=== PATIENT | female | born 1945 | race Caucasian/White ===

== ENCOUNTER → 2017-09-23 | Outpatient (CLI) | payer MEDICARE, OTHER ==
[~2017-09-23] MED LIST: AC325T PO; BUDE6HFA IH; CHOL2000 PO; CNDS16T PO; FEXO180T PO; GABA600T2 PO; LUBI24CA PO; METF500T8 PO; PRAM0.252 PO; SITA100T PO; TIOT18CA IH; TRAM50TA2 PO; TRS20T PO; VENL150C PO
--- NOTE | 2017-09-23 12:40 | Diagnostic Imaging Report ---
INDICATION: Left rib pain. TIME OF EXAM: 12:45 p.m. FINDINGS: Multiple views of left-sided ribs were obtained. No displaced rib fracture is detected. There appears to be some atelectasis or infiltrate in the left lung base and perhaps minimal pleural fluid. IMPRESSION: 1. No displaced rib fracture detected. 2. Left basilar infiltrate or atelectasis and trace pleural effusion. Dictated by: Dictated on workstation # [id number]
== END ==
LOC: RAD 12:11
PROVIDERS: ATTEND Family Medicine
DX: R07.81 Pleurodynia (principal)
CPT/HCPCS: 71100

== ENCOUNTER → 2017-11-11 | Outpatient (CLI) | payer MEDICARE, OTHER ==
--- NOTE | 2017-11-11 14:31 | Diagnostic Imaging Report ---
INDICATION: Left shoulder pain. FINDINGS: Two views of the left shoulder show no fracture or dislocation. IMPRESSION: Negative left shoulder. Dictated by: Dictated on workstation # [id number]
--- NOTE | 2017-11-11 14:32 | Diagnostic Imaging Report ---
INDICATION: Chest pain. FINDINGS: The lungs are clear. The heart size is at the upper limits. No gross overdistention of the vascularity. There is mild air trapping or aggressive inspiration. No acute chest wall pathology. No effusion or pneumothorax. IMPRESSION: Clear mildly hyperexpanded lungs which may reflect an element of air trapping. No acute chest wall pathology. No infiltrate. Dictated by: Dictated on workstation # [id number]
== END ==
LOC: RAD 13:43
PROVIDERS: ATTEND Nurse Practitioner Family
DX: J98.4 Other disorders of lung (principal); M25.512 Pain in left shoulder
CPT/HCPCS: 71046; 73030

== ENCOUNTER → 2017-11-18 | Outpatient (CLI) | payer MEDICARE, OTHER ==
[~2017-11-18] MED LIST changes: +CATHETER FLUSH 10 ML SYR IV PRN; +IOHEXOL 350 MG/ML 100 ML (OMNIPAQUE 350) VIAL IV ONE; +NS 250 ML (IVPB) BAG IV ONE; +RECEIVED CONTRAST (Hold Metformin) IV SCH
[2017-11-18 09:27] LABS: BUN/CREATININE RATIO 17; CREATININE SERUM 0.77 MG/DL (0.60-1.30); GFR ESTIMATED > 60
--- NOTE | 2017-11-18 13:46 | Diagnostic Imaging Report ---
PROCEDURE: CT chest with contrast only. TECHNIQUE: Multiple contiguous axial images were obtained through the chest after administration of intravenous contrast. INDICATION: Chest pain. COMPARISON: There are no prior CT chest studies available for comparison. FINDINGS: The heart is enlarged. There is no clear evidence for coronary artery calcifications, however. The aorta is not abnormally dilated, and there is no sign of a dissection. There is no defect within the pulmonary arteries to indicate a pulmonary embolus. There are slightly displaced fractures of the anterior aspects of the right sixth, seventh, eighth, and ninth ribs. There is also some deformity of the right 10th rib anteriorly. This could be long-standing in nature. There are also slightly displaced fractures of the anterior aspects of the left sixth, seventh, eighth, and ninth ribs. There is no sign of pneumothorax. There is an alveolar/interstitial infiltrate in the left infrahilar region and the left lung base. These findings may be secondary to pneumonia/atelectasis. The possibility that these are related to pulmonary contusions should also be considered. There are also much smaller patchy areas of increased density in the periphery of each lung. These too may relate to mild pneumonia/atelectasis. There is a 4.3 mm noncalcified nodule in the left lower lobe (image 36/62). This is most likely a benign process as it does not seem to have changed significantly since the prior CT abdomen/pelvis exam of 11/17/2010. There is no mediastinal or hilar adenopathy. The thyroid gland is generally unremarkable. As noted on the prior exam, there is a large hiatal hernia. The hernia measures approximately 4.2 x 5.9 cm in size. In the interval since the prior exam, it appears that the patient has undergone a surgical procedure regarding the hernia. Correlation with the patient's history would be recommended. The sections through the upper abdomen again show that both the liver and spleen are prominent but similar in appearance to the prior study. However, in the interval since the prior exam, a 2.3 x 3.4 cm well-defined area of diminished density has developed along the posterior aspect of the left kidney. Most likely, this is a cyst. The bone windows show no sign of a fracture or of a destructive lesion. There is no obvious breast mass. IMPRESSION: 1. There are multiple essentially nondisplaced rib fractures bilaterally. There is no sign of pneumothorax. 2. The abnormal parenchymal density in the left infrahilar region and the left lower lobe may be secondary to pneumonia/atelectasis. The possibility that these findings are related to a pulmonary contusion should also be considered. 3. There is no acute cardiopulmonary abnormality noted otherwise. In particular, there is no sign of a pulmonary embolus or of a dissection. 4. The small nodule in the left lung base seen previously is again evident and no different. There is a large hiatal hernia, and there has been an interval surgical procedure involving the hernia. 5. A 2.2 x 3.4 cm cyst has developed along the posterior aspect of the left kidney. Dictated by: Dictated on workstation # [id number]
== END ==
LOC: RAD 08:48
PROVIDERS: ATTEND Family Medicine
DX: S22.43XA Multiple fractures of ribs, bilateral, initial encounter for closed fracture (principal); R91.8 Other nonspecific abnormal finding of lung field; R91.1 Solitary pulmonary nodule; K44.9 Diaphragmatic hernia without obstruction or gangrene; N28.1 Cyst of kidney, acquired; Z98.890 Other specified postprocedural states
CPT/HCPCS: 36415; 71260; 82565; 84520

== ENCOUNTER → 2018-04-06 | Outpatient (CLI) | payer MEDICARE, OTHER ==
[~2018-04-06] MED LIST changes: -CATHETER FLUSH 10 ML SYR IV PRN; -IOHEXOL 350 MG/ML 100 ML (OMNIPAQUE 350) VIAL IV ONE; -NS 250 ML (IVPB) BAG IV ONE; -RECEIVED CONTRAST (Hold Metformin) IV SCH
--- NOTE | 2018-04-06 12:12 | Diagnostic Imaging Report ---
INDICATION: Chest tightness, dyspnea. Sore to the touch in the sternal region for several days. TECHNIQUE: Two-view chest at 11:22 a.m. CORRELATION STUDY: 11/11/2017. FINDINGS: Heart size remains borderline. Vasculature is within normal limits. Lungs remain generally clear, but slightly hyperinflated. No appreciable infiltrate. Density in the retrocardiac region consistent with a likely hiatal hernia. IMPRESSION: 1. Borderline heart size without failure. Slightly hyperinflated lung lugo which are clear. Dictated by: Dictated on workstation # [id number]
== END ==
LOC: RAD 10:50
PROVIDERS: ATTEND Family Medicine
DX: R07.89 Other chest pain (principal); R06.00 Dyspnea, unspecified
CPT/HCPCS: 71046

== ENCOUNTER → 2018-06-08 | Outpatient (CLI) | payer MEDICARE, OTHER | LOC: WOUNDCARE 12:48 | PROVIDERS: ATTEND Surgery | DX: E11.622 Type 2 diabetes mellitus with other skin ulcer (principal); I70.242 Atherosclerosis of native arteries of left leg with ulceration of calf; I87.332 Chronic venous hypertension (idiopathic) with ulcer and inflammation of left lower extremity; L97.221 Non-pressure chronic ulcer of left calf limited to breakdown of skin; I89.0 Lymphedema, not elsewhere classified; E66.01 Morbid (severe) obesity due to excess calories; Z68.43 Body mass index [BMI] 50.0-59.9, adult | CPT/HCPCS: 99213 ==

== ENCOUNTER → 2018-06-15 | Outpatient (CLI) | payer MEDICARE, OTHER | LOC: WOUNDCARE 09:14 | PROVIDERS: ATTEND Surgery | DX: E11.622 Type 2 diabetes mellitus with other skin ulcer (principal); I70.242 Atherosclerosis of native arteries of left leg with ulceration of calf; I87.332 Chronic venous hypertension (idiopathic) with ulcer and inflammation of left lower extremity; L97.221 Non-pressure chronic ulcer of left calf limited to breakdown of skin; I89.0 Lymphedema, not elsewhere classified; E66.01 Morbid (severe) obesity due to excess calories; Z68.43 Body mass index [BMI] 50.0-59.9, adult | CPT/HCPCS: 99213 ==

== ENCOUNTER → 2018-06-15 | Outpatient (CLI) | payer MEDICARE, OTHER ==
--- NOTE | 2018-06-15 09:33 | Diagnostic Imaging Report ---
Clinical indication: Patient with left leg ulcers and swelling. Comparison: None. Procedure: Real-time left lower extremity venous Doppler duplex evaluation is performed from the inguinal region through the popliteal fossa. The calf venous structures are also evaluated. Findings: The deep venous system is well visualized and is easily compressible. There is no evidence of deep venous thrombosis, valvular incompetence, or significant collateral circulation. Impression: There is no ultrasound Doppler evidence of deep venous thrombosis in the left lower extremity. Dictated by: Dictated on workstation # [id number]
== END ==
LOC: RAD 08:40
PROVIDERS: ATTEND Nurse Practitioner Family
DX: L97.929 Non-pressure chronic ulcer of unspecified part of left lower leg with unspecified severity (principal); M79.605 Pain in left leg

== ENCOUNTER → 2018-06-22 | Outpatient (CLI) | payer MEDICARE, OTHER | LOC: WOUNDCARE 08:01 | PROVIDERS: ATTEND Surgery | DX: E11.621 Type 2 diabetes mellitus with foot ulcer (principal); L97.511 Non-pressure chronic ulcer of other part of right foot limited to breakdown of skin; E11.622 Type 2 diabetes mellitus with other skin ulcer; I87.332 Chronic venous hypertension (idiopathic) with ulcer and inflammation of left lower extremity; L97.221 Non-pressure chronic ulcer of left calf limited to breakdown of skin; I89.0 Lymphedema, not elsewhere classified; E66.01 Morbid (severe) obesity due to excess calories; Z68.43 Body mass index [BMI] 50.0-59.9, adult | CPT/HCPCS: 29581 ==

== ENCOUNTER → 2018-06-24 | Outpatient (CLI) | payer MEDICARE, OTHER | LOC: WOUNDCARE 08:22 | PROVIDERS: ATTEND Surgery | DX: I87.332 Chronic venous hypertension (idiopathic) with ulcer and inflammation of left lower extremity (principal); L97.221 Non-pressure chronic ulcer of left calf limited to breakdown of skin; I89.0 Lymphedema, not elsewhere classified; E11.621 Type 2 diabetes mellitus with foot ulcer; L97.511 Non-pressure chronic ulcer of other part of right foot limited to breakdown of skin | CPT/HCPCS: 99212 ==

== ENCOUNTER → 2018-06-29 | Outpatient (CLI) | payer MEDICARE, OTHER | LOC: WOUNDCARE 08:13 | PROVIDERS: ATTEND Surgery | DX: E11.622 Type 2 diabetes mellitus with other skin ulcer (principal); I87.333 Chronic venous hypertension (idiopathic) with ulcer and inflammation of bilateral lower extremity; L97.212 Non-pressure chronic ulcer of right calf with fat layer exposed; L97.221 Non-pressure chronic ulcer of left calf limited to breakdown of skin; I89.0 Lymphedema, not elsewhere classified; E66.01 Morbid (severe) obesity due to excess calories; Z68.43 Body mass index [BMI] 50.0-59.9, adult | CPT/HCPCS: 11042; 29581 ==

== ENCOUNTER → 2018-07-01 | Outpatient (CLI) | payer MEDICARE, OTHER | LOC: WOUNDCARE 09:02 | PROVIDERS: ATTEND Surgery | DX: E11.622 Type 2 diabetes mellitus with other skin ulcer (principal); I87.333 Chronic venous hypertension (idiopathic) with ulcer and inflammation of bilateral lower extremity; L97.212 Non-pressure chronic ulcer of right calf with fat layer exposed; L97.221 Non-pressure chronic ulcer of left calf limited to breakdown of skin; I89.0 Lymphedema, not elsewhere classified; E66.01 Morbid (severe) obesity due to excess calories; Z68.43 Body mass index [BMI] 50.0-59.9, adult | CPT/HCPCS: 29581 ==

== ENCOUNTER 2018-07-03 08:54 | Emergency (ER) | payer MEDICARE, OTHER ==
[~2018-07-03] VITALS: Ht 165.1 cm; Wt 90.7 kg
--- OUTSIDE RECORDS SUMMARY | 2018-07-03 08:58 | XMS REPORT | Clinical Summary ---
Author Author [facility] Organization [facility] Address Unknown Phone Unavailable Care Team Providers Care Mottler Operator Name Role Phone Nuha Thomas MD PCP Allergies Not on File Current Medications Not on file Active Problems Not on file Social History Tobacco Use Types Packs/Day Years Used Date Never Assessed Sex Assigned at Date Recorded Not on file Last Filed Vital Signs Not on file Plan of Treatment Health Maintenance Due Date Last Done Comments Td # 1945 Zoster Vaccine# (1 of 2) 1996 Fall Risk Assessment # 2011 Osteoporosis Screening 2011 Pneumococcal Immunization 2011 65+ (1 of 2 - PCV13) Influenza Vaccine (#1) 2018 Results Not on filefrom Last 3 Months
--- OUTSIDE RECORDS SUMMARY | 2018-07-03 08:58 | XMS REPORT | Clinical Summary ---
Author Author [facility] Organization [facility] Address Unknown Phone Unavailable Care Team Providers Care Client Engagement Manager Name Role Phone Jose De Jesus Tyler MD Unavailable Antionette Rodriges MD PCP Source Comments Some departments are not documenting in the electronic medical record. If you do not see the information that you expected, contact Release of Information in the Health Information Management department at [phone] for further assistance in locating additional records.[facility] Allergies Active Allergy Reactions Severity Noted Date Comments Codeine SHORTNESS OF BREATH, SEE Medium 05/10/2012 Abdominal pain COMMENTS Morphine SHORTNESS OF BREATH, SEE Medium 05/10/2012 Abdominal pain COMMENTS Current Medications Prescription Sig. Disp. Refills Start End Date Status Date gabapentin (NEURONTIN) Take 800 mg by mouth Active 800 mg tablet daily. 1. PRAMIPEXOLE DI-HCL Take 1.5 mg by mouth Active (PRAMIPEXOLE PO) daily. 1. fexofenadine(+) (HAO) Take 180 mg by mouth Active 180 mg tablet daily. cetirizine (ZYRTEC) 10 mg Take 10 mg by mouth Active tablet daily. fluticasone (FLONASE) 50 Apply 2 Sprays to each Active mcg/actuation nasal spray nostril as directed daily. sertraline (ZOLOFT) 100 Take 100 mg by mouth Active mg tablet daily. furosemide (LASIX) 40 mg Take 40 mg by mouth twice Active tablet weekly. potassium chloride SR Take 20 mEq by mouth Active (K-DUR) 20 mEq tablet daily. allopurinol (ZYLOPRIM) Take 300 mg by mouth Active 300 mg tablet daily. MULTIVITAMIN WITH Take 1 Tab by mouth twice Active MINERALS (MULTIVITAMIN & daily. MINERAL FORMULA PO) acetaminophen (TYLENOL) Take 500 mg by mouth Active 500 mg tablet every 6 hours as needed for Pain. celecoxib (CELEBREX) 200 Take 200 mg by mouth Active mg capsule twice daily. OMEPRAZOLE (PRILOSEC PO) Take 1 Tab by mouth twice Active daily. Active Problems Problem Noted Date Cerebral cavernoma 05/28/2012 Numbness and tingling in right hand 05/28/2012 Numbness and tingling of right leg 05/28/2012 Right foot drop 05/28/2012 Overview: Complete resolution at this time. Family History Medical History Relation Name Comments COPD Father Alzheimer's Mother Arthritis Other /gout-parents Cancer Other siblings Depression Other parents Emphysema Other /black lung-parents Mental Illness Other parents Relation Name Status Comments Father (Age 96) Mother (Age 87) Other Other Other Other Other Social History Tobacco Use Types Packs/Day Years Used Date Never Smoker Alcohol Use Drinks/Week oz/Week Comments No Sex Assigned at Date Recorded Not on file Last Filed Vital Signs Vital Sign Reading Time Taken Blood Pressure 158/91 02/26/2017 1:37 PM CDT Pulse 77 02/26/2017 1:37 PM CDT Temperature 36.3 C (97.3 F) 05/27/2012 11:09 AM CDT Respiratory Rate - - Oxygen Saturation - - Inhaled Oxygen - - Concentration Weight 106.1 kg (234 lb) 02/26/2017 1:37 PM CDT Height 164.5 cm (5' 4.75") 02/26/2017 1:37 PM CDT Body Mass Index 39.24 02/26/2017 1:37 PM CDT Plan of Treatment Health Maintenance Due Date Last Done Comments HEPATITIS C SCREENING 1945 PHYSICAL (COMPREHENSIVE) 1953 EXAM PERTUSSIS VACCINE 1957 TETANUS VACCINE 1963 BREAST CANCER SCREENING 1986 COLORECTAL CANCER 1996 SCREENING SHINGLES RECOMBINANT 1996 VACCINE (1 of 2) OSTEOPOROSIS SCREENING 2011 PNEUMONIA (PCV13/PPSV23) 2011 VACCINES (1 of 2 - PCV13) INFLUENZA VACCINE 04/01/2018 06/19/2001 Results Not on filefrom Last 3 Months
--- OUTSIDE RECORDS SUMMARY | 2018-07-03 08:59 | XMS REPORT | Continuity of Care Document ---
Author Author [facility] Organization [facility] Address Unknown Phone Unavailable Allergies Active Description Code Type Severity Reaction Onset Reported/Identified Relationship to Patient Clinical Status Yes codeine [id number] Drug Allergy Severe N/A 11/17/2010 Medications There is no data. Problems Date Dx Coded Attending Type Code Diagnosis Diagnosed By 11/21/2010 Ot 250.00 11/21/2010 Ot 278.00 11/21/2010 Ot 285.9 11/21/2010 Ot 493.90 11/21/2010 Ot 592.1 11/21/2010 Ot 593.5 11/21/2010 Ot 593.9 11/21/2010 Ot V12.59 11/21/2010 Ot V85.42 05/30/2014 PENG BURCH, AURE Ot 250.00 DIAB JV WO COMPL, TYPE II OR UNSPEC TY 05/30/2014 PENG BURCH, AURE Ot 278.01 MORBID OBESITY 05/30/2014 PENG BURCH, AURE Ot 280.9 IRON DEFIC ANEMIA NOS 05/30/2014 PENG BURCH, AURE Ot 553.3 DIAPHRAGMATIC HERNIA 05/30/2014 PENG BURCH, AURE Ot V85.42 BODY MASS INDEX 45.0-49.9, ADULT 07/25/2014 Ot 250.00 07/25/2014 Ot 278.01 07/25/2014 Ot 280.9 07/25/2014 Ot 553.3 07/25/2014 Ot V85.42 07/25/2014 Ot 250.00 07/25/2014 Ot 278.01 07/25/2014 Ot 280.9 07/25/2014 Ot 553.3 07/25/2014 Ot V85.42 11/02/2015 Ot V76.12 11/02/2015 Ot 780.93 11/02/2015 Ot 781.3 11/02/2015 Ot 733.90 11/02/2015 PENG BURCH, AURE Ot V76.12 11/02/2015 Ot 250.00 11/02/2015 Ot 278.01 11/02/2015 Ot 280.9 11/02/2015 Ot 553.3 11/02/2015 Ot V85.42 11/03/2015 Ot V76.12 11/03/2015 Ot 780.93 11/03/2015 Ot 781.3 11/03/2015 Ot 733.90 11/03/2015 PENG BURCH, AURE Ot V76.12 11/03/2015 Ot 250.00 11/03/2015 Ot 278.01 11/03/2015 Ot 280.9 11/03/2015 Ot 553.3 11/03/2015 Ot V85.42 11/03/2015 ORENDER DO, JEANETTE S Ot S00.83XA 11/03/2015 [facility] W19.XXXA 11/03/2015 OREND DO, JEANETTE S Ot Y99.8 11/08/2015 [facility] S Ot S00.83XA 11/08/2015 [facility] S Ot W19.XXXA 11/08/2015 [facility]TE S Ot Y99.8 11/23/2015 [facility]TE S Ot G93.9 11/23/2015 [facility] S Ot S09.90XA 11/23/2015 [facility] JE[facility]TE S Ot X58.XXXA 11/23/2015 [facility]TE S Ot S00.83XA 11/23/2015 [facility] S Ot W19.XXXA 11/23/2015 [facility]TE S Ot Y99.8 03/20/2016 PRADIP CRAWFORD MD Ot E11.42 TYPE 2 DIABETES MELLITUS WITH DIABETIC P 03/20/2016 PRADIP CRAWFORD MD Ot E66.01 MORBID (SEVERE) OBESITY DUE TO EXCESS CA 03/20/2016 PRADIP CRAWFORD MD Ot I87.332 CHRONIC VENOUS HTN W ULCER AND INFLAMMAT 03/20/2016 PRADIP CRAWFORD MD Ot L97.221 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 03/20/2016 PRADIP CRAWFORD MD Ot Z68.36 BODY MASS INDEX (BMI) 36.0-36.9, ADULT 09/23/2017 Ot 733.90 BONE CARTILAGE DIS NOS 09/23/2017 AURE KHOURY MD Ot V76.12 OTH SCREEN MAMMO-MALIGN NEOPLASM OF [place] 09/23/2017 Ot 250.00 DIAB JV WO COMPL, TYPE II OR UNSPEC TY 09/23/2017 Ot 278.01 MORBID OBESITY 09/23/2017 Ot 280.9 IRON DEFIC ANEMIA NOS 09/23/2017 Ot 553.3 DIAPHRAGMATIC HERNIA 09/23/2017 Ot V85.42 BODY MASS INDEX 45.0-49.9, ADULT 09/23/2017 CHERINDDANIEL ARREGUIN DOLINE S Ot S00.83XA CONTUSION OF OTHER PART OF HEAD, INITIAL 09/23/2017 ERNESTO NEELY JEANETTE S Ot W19.XXXA UNSPECIFIED FALL, INITIAL ENCOUNTER 09/23/2017 ERNESTO NEELY JEANETTE S Ot Y99.8 OTHER EXTERNAL CAUSE STATUS 09/23/2017 ERNESTO NEELY JEANETTE S Ot G93.9 DISORDER OF BRAIN, UNSPECIFIED 09/23/2017 CHERINDKALLIE ENELY JEANETTE S Ot S09.90XA UNSPECIFIED INJURY OF HEAD, INITIAL ENCO 09/23/2017 DANIEL OROZCO DOLINE S Ot X58.XXXA EXPOSURE TO OTHER SPECIFIED FACTORS, INI 09/24/2017 ERNESTO NEELY JEANETTE S Ot R07.81 PLEURODYNIA 10/14/2017 ORENDKALLIE NEELY JEANETTE S Ot R07.81 PLEURODYNIA 11/12/2017 Ot J98.4 OTHER DISORDERS OF LUNG 11/12/2017 Ot M25.512 PAIN IN LEFT SHOULDER 11/18/2017 Ot 733.90 BONE CARTILAGE DIS NOS 11/18/2017 AURE KHOURY MD Ot V76.12 OTH SCREEN MAMMO-MALIGN NEOPLASM OF [place] 11/18/2017 Ot 250.00 DIAB JV WO COMPL, TYPE II OR UNSPEC TY 11/18/2017 Ot 278.01 MORBID OBESITY 11/18/2017 Ot 280.9 IRON DEFIC ANEMIA NOS 11/18/2017 Ot 553.3 DIAPHRAGMATIC HERNIA 11/18/2017 Ot V85.42 BODY MASS INDEX 45.0-49.9, ADULT 11/18/2017 CHERINDER JEANETTE S Ot S00.83XA CONTUSION OF OTHER PART OF HEAD, INITIAL 11/18/2017 JEANETTE OROZCO DO Ot W19.XXXA UNSPECIFIED FALL, INITIAL ENCOUNTER 11/18/2017 JEANETTE OROZCO DO Ot Y99.8 OTHER EXTERNAL CAUSE STATUS 11/18/2017 JEANETTE OROZCO DO Ot G93.9 DISORDER OF BRAIN, UNSPECIFIED 11/18/2017 JEANETTE OROZCO DO Ot S09.90XA UNSPECIFIED INJURY OF HEAD, INITIAL ENCO 11/18/2017 JEANETTE OROZCO DO Ot X58.XXXA EXPOSURE TO OTHER SPECIFIED FACTORS, INI 11/18/2017 JEANETTE OROZCO DO Ot R07.81 PLEURODYNIA 11/18/2017 Ot J98.4 OTHER DISORDERS OF LUNG 11/18/2017 Ot M25.512 PAIN IN LEFT SHOULDER 11/19/2017 JEANETTE OROZCO DO Ot K44.9 DIAPHRAGMATIC HERNIA WITHOUT OBSTRUCTION 11/19/2017 JEANETTE OROZCO DO Ot N28.1 CYST OF KIDNEY, ACQUIRED 11/19/2017 DANIEL OROZCO DOLINE S Ot R91.1 SOLITARY PULMONARY NODULE 11/19/2017 DANIEL OROZCO DOLINE S Ot R91.8 OTHER NONSPECIFIC ABNORMAL FINDING OF PATRICE 11/19/2017 JEANETTE OROZCO DO Ot S22.43XA MULTIPLE FRACTURES OF RIBS, BILATERAL, I 11/19/2017 JEANETTE OROZCO DO Ot Z98.890 OTHER SPECIFIED POSTPROCEDURAL STATES 11/24/2017 JEANETTE OROZCO DO Ot K44.9 DIAPHRAGMATIC HERNIA WITHOUT OBSTRUCTION 11/24/2017 JEANETTE OROZCO DO Ot N28.1 CYST OF KIDNEY, ACQUIRED 11/24/2017 DANIEL OROZCO DOLINE S Ot R91.1 SOLITARY PULMONARY NODULE 11/24/2017 DANIEL OROZCO DOLINE S Ot R91.8 OTHER NONSPECIFIC ABNORMAL FINDING OF PATRICE 11/24/2017 DANIEL OROZCO DOLINE S Ot S22.43XA MULTIPLE FRACTURES OF RIBS, BILATERAL, I 11/24/2017 DANIEL OROZCO DOLINE S Ot Z98.890 OTHER SPECIFIED POSTPROCEDURAL STATES 12/02/2017 Ot J98.4 OTHER DISORDERS OF LUNG 12/02/2017 Ot M25.512 PAIN IN LEFT SHOULDER 04/28/2018 Ot R06.00 DYSPNEA, UNSPECIFIED 04/28/2018 Ot R07.89 OTHER CHEST PAIN 06/10/2018 PRADIP CRAWFORD MD, Ot E11.622 TYPE 2 DIABETES MELLITUS WITH OTHER SKIN 06/10/2018 PRADIP CRAWFORD MD, Ot E66.01 MORBID (SEVERE) OBESITY DUE TO EXCESS CA 06/10/2018 PRADIP CRAWFORD MD, Ot 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 06/10/2018 PRADIP CRAWFORD MD, Ot I87.332 CHRONIC VENOUS HTN W ULCER AND INFLAMMAT 06/10/2018 PRADIP CRAWFORD MD, Ot I89.0 LYMPHEDEMA, NOT ELSEWHERE CLASSIFIED 06/10/2018 PRADIP CRAWFORD MD, Ot L97.221 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 06/10/2018 PRADIP CRAWFORD MD, Ot Z68.43 BODY MASS INDEX (BMI) 50-59.9, ADULT 06/18/2018 PATTY GAMEZ APRN Ot L97.929 NON-PRS CHRONIC ULC UNSP PRT OF L LOW LE 06/18/2018 PATTY GAMEZ COST COORDINATOR Ot M79.605 PAIN IN LEFT LEG 06/18/2018 PRADIP CRAWFORD MD, Ot E11.622 TYPE 2 DIABETES MELLITUS WITH OTHER SKIN 06/18/2018 PRADIP CRAWFORD MD, Ot E66.01 MORBID (SEVERE) OBESITY DUE TO EXCESS CA 06/18/2018 PRADIP CRAWFORD MD, Ot 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 06/18/2018 PRADIP CRAWFORD MD, Ot I87.332 CHRONIC VENOUS HTN W ULCER AND INFLAMMAT 06/18/2018 PRADIP CRAWFORD MD, Ot I89.0 LYMPHEDEMA, NOT ELSEWHERE CLASSIFIED 06/18/2018 PRADIP CRAWFORD MD, Ot L97.221 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 06/18/2018 PRADIP CRAWFORD MD, Ot Z68.43 BODY MASS INDEX (BMI) 50-59.9, ADULT 06/24/2018 PRADIP CRAWFORD MD, Ot E11.621 TYPE 2 DIABETES MELLITUS WITH FOOT ULCER 06/24/2018 PRADIP CRAWFORD MD, Ot E11.622 TYPE 2 DIABETES MELLITUS WITH OTHER SKIN 06/24/2018 PRADIP CRAWFORD MD, Ot E66.01 MORBID (SEVERE) OBESITY DUE TO EXCESS CA 06/24/2018 PRADIP CRAWFORD MD, Ot I87.332 CHRONIC VENOUS HTN W ULCER AND INFLAMMAT 06/24/2018 PRADIP CRAWFORD MD, Ot I89.0 LYMPHEDEMA, NOT ELSEWHERE CLASSIFIED 06/24/2018 PRADIP CRAWFORD MD, Ot L97.221 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 06/24/2018 PRADIP CRAWFORD MD, Ot L97.511 NON-PRS CHRONIC ULCER OTH PRT R FOOT GREGORIO 06/24/2018 PRADIP CRAWFORD MD, Ot Z68.43 BODY MASS INDEX (BMI) 50-59.9, ADULT 06/30/2018 PRADIP CRAWFORD MD, Ot E11.622 TYPE 2 DIABETES MELLITUS WITH OTHER SKIN 06/30/2018 PRADIP CRAWFORD MD, Ot E66.01 MORBID (SEVERE) OBESITY DUE TO EXCESS CA 06/30/2018 PRADIP CRAWFORD MD, Ot 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 06/30/2018 PRADIP CRAWFORD MD, Ot I87.332 CHRONIC VENOUS HTN W ULCER AND INFLAMMAT 06/30/2018 PRADIP CRAWFORD MD, Ot I89.0 LYMPHEDEMA, NOT ELSEWHERE CLASSIFIED 06/30/2018 PRADIP CRAWFORD MD, Ot L97.221 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 06/30/2018 PRADIP CRAWFORD MD, Ot Z68.43 BODY MASS INDEX (BMI) 50-59.9, ADULT 06/30/2018 PRADIP CRAWFORD MD, Ot E11.622 TYPE 2 DIABETES MELLITUS WITH OTHER SKIN 06/30/2018 PRADIP CRAWFORD MD, Ot E66.01 MORBID (SEVERE) OBESITY DUE TO EXCESS CA 06/30/2018 PRADIP CRAWFORD MD, Ot I87.333 CHRONIC VENOUS HTN W ULCER AND INFLAM OF 06/30/2018 PRADIP CRAWFORD MD, Ot I89.0 LYMPHEDEMA, NOT ELSEWHERE CLASSIFIED 06/30/2018 PRADIP CRAWFORD MD, Ot L97.212 NON-PRESSURE CHRONIC ULCER OF RIGHT CALF 06/30/2018 PRADIP CRAWFORD MD, Ot L97.221 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 06/30/2018 PRADIP CRAWFORD MD, Ot Z68.43 BODY MASS INDEX (BMI) 50-59.9, ADULT 07/02/2018 PRADIP CRAWFORD MD Ot E11.622 TYPE 2 DIABETES MELLITUS WITH OTHER SKIN 07/02/2018 PRADIP CRAWFORD MD, Ot E66.01 MORBID (SEVERE) OBESITY DUE TO EXCESS CA 07/02/2018 PRADIP CRAWFORD MD, Ot I87.333 CHRONIC VENOUS HTN W ULCER AND INFLAM OF 07/02/2018 PRADIP CRAWFORD MD, Ot I89.0 LYMPHEDEMA, NOT ELSEWHERE CLASSIFIED 07/02/2018 PRADIP CRAWFORD MD, Ot L97.212 NON-PRESSURE CHRONIC ULCER OF RIGHT CALF 07/02/2018 PRADIP CRAWFORD MD, Ot L97.221 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 07/02/2018 PRADIP CRAWFORD MD, Ot Z68.43 BODY MASS INDEX (BMI) 50-59.9, ADULT Procedures There is no data. Results Test Result Range [id number] - 11/18/17 09:00 Serum or plasma urea nitrogen measurement (mass/volume) 13 mg/dL 7-18 Serum or plasma creatinine measurement (mass/volume) 0.77 mg/dL 0.60-1.30 Serum or plasma urea nitrogen/creatinine mass ratio 17 NRG Serum or plasma creatinine measurement with calculation of estimated glomerular filtration rate > NRG Encounters ACCT No. Visit Date/Time Discharge Status Pt. Type Provider Facility Loc./Unit Complaint [id number] 06/29/2018 08:13:00 06/29/2018 23:59:59 CLS Outpatient PRADIP CRAWFORD MD [facility] WOUNDCARE [id number] 06/24/2018 08:22:00 06/24/2018 23:59:59 CLS Outpatient PRADIP CRAWFORD MD [facility] WOUND[facility] [id number] 06/22/2018 08:01:00 06/22/2018 23:59:59 CLS Outpatient PRADIP CRAWFORD MD [facility] W[facility] [id number] 06/15/2018 09:14:00 06/15/2018 23:59:59 CLS Outpatient PRADIP CRAWFORD MD [facility] WOUND[facility] [id number] 06/15/2018 08:40:00 06/15/2018 23:59:59 CLS Outpatient PATTY GAMEZ APRN [facility] RAD LEFT LOWER EXT PAIN ,SWELLING [id number] 06/08/2018 12:48:00 06/08/2018 23:59:59 CLS Outpatient PRADIP CRAWFORD MD [facility] WOUND[facility] [id number] 11/18/2017 08:48:00 11/18/2017 23:59:59 CLS Outpatient LEXI OROZCO DOQUELINE S [facility] RAD CHEST PAIN,COUGH [id number] 09/23/2017 12:11:00 09/23/2017 23:59:59 CLS Outpatient GEOVANNAER DO JEANETTE S [facility] RAD LT ANTERIOR LATERAL RIB/CHEST PAIN WALL PAIN [id number] 03/20/2016 09:18:00 03/20/2016 16:00:00 DIS Outpatient PRADIP CRAWFORD MD [facility] WOUND[facility] [id number] 11/03/2015 14:35:00 11/03/2015 23:59:59 CLS Outpatient ERNESTO NEELY JEANETTE S [facility] RAD HEAD TRAUMA [id number] 11/02/2015 15:13:00 11/02/2015 23:59:59 CLS Outpatient ERNESTO NEELY JEANETTE S [facility] RAD HEAD AND CERVICAL SPINE LEFT FACIAL CONTUSION [id number] 03/23/2014 13:03:00 05/30/2014 00:01:00 DIS Outpatient AURE KHOURY MD [facility] ONC [id number] 03/09/2014 10:07:00 03/09/2014 23:59:59 CLS Outpatient AURE KHOURY MD [facility] RAD SCREENING [id number] 07/03/2018 08:55:00 ACT Emergency MARIEL BURCH, HUY Wilson [facility] ER FALL [id number] 07/03/2018 08:08:00 ACT Outpatient PRADIP CRAWFORD MD [facility] WOUNDC[facility] [id number] 07/01/2018 09:02:00 ACT Outpatient PRADIP CRAWFORD MD [facility] WOUND[facility] [id number] 04/06/2018 10:50:00 Document Registration [id number] 11/11/2017 13:43:00 Document Registration [id number] 07/26/2014 09:23:00 Document Registration [id number] 09/18/2012 14:08:00 Document Registration [id number] 01/22/2012 10:40:00 Document Registration [id number] 03/26/2011 08:42:00 Document Registration [id number] 11/17/2010 15:19:00 Document Registration 10/201506/15/2018 08:14:04 06/15/2018 23:59:59 Jeanette Hatfield
[2018-07-03 09:18] VITALS: BP 132/62
--- NOTE | 2018-07-03 09:38 | ED Trauma-Multisystem ---
General Chief Complaint: Trauma-Non Activation Stated Complaint: FALL Nursing Triage Note: THIS PT FELL IN THE PARKING LOT OF THE HOSPITAL. SHE WAS COMMING THE THE HOSPITAL FOR SOME OP TX. SHE WAS ASSISTED TO THE WHEELCHAIR WITHOUT DIFFICULTY. THE PT WENT TO HER OP TX PRIOR TO BEING SEEN IN THE ED. Source of Information: Patient Exam Limitations: No Limitations History of Present Illness Date Seen by Provider: Jul 03, 2018 Time Seen by Provider: 09:38 Initial Comments The patient is a 72-year-old white female who was observed by another to fall in the parking lot earlier this morning. She was on her way to a wound care appointment. She refused treatment at that point. She went on to the wound care appointments and was convinced that she should report here for further evaluation which she did after her appointment. She states that she did not lose consciousness. She was not on any aspirin or blood thinners. 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 Occurred: Just Prior to Arrival Pain/Injury Location: Face Method of Injury: Direct Blow, Fall Allergies and Home Medications Allergies Coded Allergies: Codeine (Unverified Allergy, Severe, 11/17/10) Home Medications Acetaminophen 325 Mg Tablet, 650 MG PO Q4H PRN, (Reported) Candesartan Cilexetil 16 Mg Tablet, 1 EACH PO DAILY, (Reported) Fexofenadine Hcl 180 Mg Tablet, 1 TAB PO DAILY, (Reported) Lubiprostone 24 Mcg Capsule, 24 MCG PO BID, (Reported) Sitagliptin Phosphate 100 Mg Tablet, 1 EACH PO DAILY, (Reported) Tiotropium [place] 1 Inh Aerp, 0 IH DAILY, (Reported) 1 INHALATION Torsemide 20 Mg Tab, 20 MG PO DAILY, (Reported) Tramadol Hcl 50 Mg Tablet, 50 MG PO QID, (Reported) Venlafaxine Hcl 150 Mg Cap.sr.24h, 1 EACH PO DAILY, (Reported) Patient Home Medication List Home Medication List Reviewed: Yes Review of Systems Review of Systems Constitutional: see HPI Eyes: No Symptoms Reported Ears: No Symptoms Reported Nose: Other (pain and distraction at the bridge of the nose. The patient reports that she felt up there and felt a pop. At that point she felt she was able to breathe through her nose better than usual) Mouth: No Symptoms Reported Throat: No Symptoms to Report Respiratory: no symptoms reported Cardiovascular: No Symptoms Reported Gastrointestinal: no symptoms reported Genitourinary: no symptoms reported Musculoskeletal: no symptoms reported Skin: see HPI Psychiatric/Neurological: No Symptoms Reported Past Rvwgitl-Oeettq-Tewazi Hx Patient Social History Alcohol Use: Denies Use Recreational Drug Use: No Smoking Status: Former Smoker 2nd Hand Smoke Exposure: No Recent Foreign Travel: No Contact w/Someone Who Travel: No Recent Infectious Disease Expo: No Immunizations Up To Date Tetanus Booster (TDap): Unknown Past Medical History Reproductive Disorders: No Physical Exam Vital Signs Vital Signs - First Documented 07/03/18 09:07 Temp 97.9 Pulse 73 Resp 18 B/P (MAP) 132/62 (85) Pulse Ox 96 Height, Weight, BMI Height: 5'5.00" Weight: 200lbs. oz. 90.769948fj; BMI Method:Estimated General Appearance: No Apparent Distress, WD/WN Head: Other (shallow abrasions in mid forehead. 4 cm hematoma in this area.) Eyes: Bilateral Eye Normal Inspection Ears, Nose, Throat: No Evidence of ENT Injury Neck: Full Range of Motion, Normal Inspection Cardiovascular: Regular Rate, Rhythm, No Edema Respiratory: Chest Non Tender, Lungs Clear, Normal Breath Sounds, No Accessory Muscle Use, No Respiratory Distress Gastrointestinal: Normal Bowel Sounds Extremity: Normal Capillary Refill Neurologic/Psychiatric: Alert Skin: Normal Color, Warm/Dry Progress/Results/Core Measures Results/Orders My Orders Orders - HUY FLOYD MD Ct Head Wo (07/03/18 09:38) Vital Signs/I&O 07/03/18 07/03/18 09:07 09:18 Temp 97.9 97.9 Pulse 73 73 Resp 18 18 B/P (MAP) 132/62 (85) 132/62 (85) Pulse Ox 96 96 Blood Pressure Mean: 85 Departure Communication (Admissions) CT scan of head showed old stable abnormality the left frontal area suggesting venous malformation. No evidence of subdural hematoma was noted. Impression Primary Impression: fall with abrasions and hematoma of forehead Disposition: 01 HOME, SELF-CARE Condition: Stable/Unchanged Departure-Patient Inst. Decision time for Depature: 10:03 Referrals: JEANETTE OROZCO DO (PCP/Family) Primary Care Physician Patient Instructions: Minor Head Injury (DC) Add. Discharge Instructions: All discharge instructions reviewed with patient and/or family. Voiced understanding. Apply ice pack to forehead at intervals. Do not be surprised if you develop a black eye Return to ER if change in balance vision or coordination. HUY FLOYD MD Jul 03, 2018 09:38
--- NOTE | 2018-07-03 09:58 | Diagnostic Imaging Report ---
PROCEDURE: CT head without contrast. TECHNIQUE: Multiple contiguous axial images were obtained through the brain without the use of intravenous contrast. INDICATION: Fall. Comparison is made with prior CT brain from 11/03/2015. There is soft tissue swelling in the right frontal scalp. Ventricles and sulci are within normal limits. The calcified lesion in the high left frontal lobe parasagittal location measuring 2.1 x 1.8 cm, stable. Previous imaging did suggest cavernous malformation. There is no mass effect or midline shift. No sulcal effacement is seen. No acute intra-axial or extra-axial hemorrhage is detected. Cisterns are patent. The visualized paranasal sinuses are clear. IMPRESSION: 1. Right frontal scalp swelling. No acute intracranial process is detected. 2. Stable calcified mass in the high left frontal lobe in a parasagittal location suggestive of a cavernous malformation. Dictated by: Dictated on workstation # [id number]
[2018-07-03] MEDS ORDERED: IBUPROFEN 600 MG (MOTRIN) TAB PO ONE (10:15)
== END 2018-07-03 10:10 | disposition home or self-care (01) ==
LOC: EDUNIT# 08:54 → ER 08:55
DX: S00.83XA Contusion of other part of head, initial encounter (principal); Z88.5 Allergy status to narcotic agent; Z87.891 Personal history of nicotine dependence; W19.XXXA Unspecified fall, initial encounter; Y92.481 Parking lot as the place of occurrence of the external cause
CPT/HCPCS: 70450; 99282

== ENCOUNTER → 2018-07-03 | Outpatient (CLI) | payer MEDICARE, OTHER | LOC: WOUNDCARE 08:08 | PROVIDERS: ATTEND Surgery | DX: E11.622 Type 2 diabetes mellitus with other skin ulcer (principal); I87.333 Chronic venous hypertension (idiopathic) with ulcer and inflammation of bilateral lower extremity; L97.212 Non-pressure chronic ulcer of right calf with fat layer exposed; L97.221 Non-pressure chronic ulcer of left calf limited to breakdown of skin; I89.0 Lymphedema, not elsewhere classified; E66.01 Morbid (severe) obesity due to excess calories; Z68.43 Body mass index [BMI] 50.0-59.9, adult | CPT/HCPCS: 29581 ==

== ENCOUNTER → 2018-07-06 | Outpatient (CLI) | payer MEDICARE, OTHER | LOC: WOUNDCARE 08:01 | PROVIDERS: ATTEND Surgery | DX: I87.333 Chronic venous hypertension (idiopathic) with ulcer and inflammation of bilateral lower extremity (principal); E11.622 Type 2 diabetes mellitus with other skin ulcer; L97.221 Non-pressure chronic ulcer of left calf limited to breakdown of skin; L97.212 Non-pressure chronic ulcer of right calf with fat layer exposed; I89.0 Lymphedema, not elsewhere classified; E66.01 Morbid (severe) obesity due to excess calories; Z68.43 Body mass index [BMI] 50.0-59.9, adult | CPT/HCPCS: 11042 ==

== ENCOUNTER → 2018-07-16 | Outpatient (CLI) | payer MEDICARE, OTHER | LOC: WOUNDCARE 08:27 | PROVIDERS: ATTEND Orthopaedic Surgery Hand Surgery | DX: L97.212 Non-pressure chronic ulcer of right calf with fat layer exposed (principal); L97.222 Non-pressure chronic ulcer of left calf with fat layer exposed; I87.333 Chronic venous hypertension (idiopathic) with ulcer and inflammation of bilateral lower extremity; I89.0 Lymphedema, not elsewhere classified; E11.622 Type 2 diabetes mellitus with other skin ulcer; E66.01 Morbid (severe) obesity due to excess calories | CPT/HCPCS: 11042 ==

== ENCOUNTER → 2018-07-30 | Outpatient (CLI) | payer MEDICARE, OTHER | LOC: WOUNDCARE 08:12 | PROVIDERS: ATTEND Orthopaedic Surgery Hand Surgery | DX: E11.622 Type 2 diabetes mellitus with other skin ulcer (principal); L97.221 Non-pressure chronic ulcer of left calf limited to breakdown of skin; I87.333 Chronic venous hypertension (idiopathic) with ulcer and inflammation of bilateral lower extremity; I89.0 Lymphedema, not elsewhere classified; E66.01 Morbid (severe) obesity due to excess calories | CPT/HCPCS: 99212 ==

== ENCOUNTER → 2018-10-26 | Outpatient (CLI) | payer MEDICARE, OTHER | LOC: LAB 08:32 | PROVIDERS: ATTEND Urology | DX: N17.9 Acute kidney failure, unspecified (principal); T50.8X5A Adverse effect of diagnostic agents, initial encounter ==

== ENCOUNTER → 2019-01-26 | Outpatient (CLI) | payer MEDICARE, OTHER ==
--- NOTE | 2019-01-26 17:11 | Diagnostic Imaging Report ---
PROCEDURE: US left lower extremity venous. TECHNIQUE: Multiple real-time grayscale images were obtained over the left lower extremity in various projections. Additional duplex Doppler and color Doppler images were also obtained. INDICATION: Left lower extremity pain. FINDINGS: There is no evidence of left lower extremity DVT. Left lower extremity deep venous system shows normal compressibility with normal response to augmentation and Valsalva. No fluid collection or mass is seen. IMPRESSION: No evidence of left lower extremity DVT. Dictated by: Dictated on workstation # [id number]
== END ==
LOC: RAD 16:34
PROVIDERS: ATTEND Internal Medicine Endocrinology, Diabetes & Metabolism
DX: L53.9 Erythematous condition, unspecified (principal); R60.0 Localized edema

== ENCOUNTER → 2020-03-16 | Outpatient (CLI) | payer MEDICARE, OTHER ==
--- NOTE | 2020-03-17 09:16 | Diagnostic Imaging Report ---
INDICATION: Routine screening. Comparison is made with prior mammogram from 03/09/2014. 2-D and 3-D bilateral screening mammography was performed with CAD. Both breasts are primarily involutional. No spiculated mass or malignant appearing microcalcifications are identified. Axillae are unremarkable. IMPRESSION: BI-RADS Category 1 No mammographic features suspicious for malignancy are identified. ACR BI-RADS Category 1: Negative. Result letter will be mailed to the patient. Note: At least 10% of breast cancer is not imaged by mammography. Dictated by: Dictated on workstation # [id number]
== END ==
LOC: RAD 15:13
PROVIDERS: ATTEND Obstetrics & Gynecology
DX: Z12.31 Encounter for screening mammogram for malignant neoplasm of breast (principal)
CPT/HCPCS: 77063; 77067

== ENCOUNTER 2020-03-28 14:14 | Outpatient (RCR) | payer MEDICARE, OTHER | END 2020-03-28 15:15 | disposition home or self-care (01) | PROVIDERS: ATTEND Family Medicine | DX: I87.8 Other specified disorders of veins (principal); R60.0 Localized edema ==

== ENCOUNTER → 2020-07-26 | Outpatient (CLI) | payer MEDICARE, OTHER | LOC: LABNPT 05:10 | PROVIDERS: ATTEND Family Medicine | DX: R05 Cough (principal); R06.02 Shortness of breath; R53.83 Other fatigue; R50.9 Fever, unspecified; M79.10 Myalgia, unspecified site; Z20.828 Contact with and (suspected) exposure to other viral communicable diseases | CPT/HCPCS: 87635 ==

== ENCOUNTER → 2020-12-06 | Outpatient (CLI) | payer MEDICARE, OTHER ==
[~2020-12-06] MED LIST changes: +CATHETER FLUSH 10 ML SYR IV PRN; +HOLD METFORMIN - RECEIVED CONTRAST 20 ML VIAL IV SCH; +IOHEXOL 350 MG/ML 100 ML (OMNIPAQUE 350) VIAL IV ONE; +NS 100 ML (IVPB) BAG IV ONE
[2020-12-06 12:43] LABS: BASOPHILS % (AUTO) 1 % (0-10); EOSINOPHILS # (AUTO) 0.2 10^3/uL (0.0-0.3); EOSINOPHILS % (AUTO) 5 % (0-10); HEMATOCRIT 38 % (35-52); HEMOGLOBIN 11.9 g/dL (11.5-16.0); LYMPHOCYTES # (AUTO) 0.8 10^3/uL (1.0-4.0); LYMPHOCYTES % (AUTO) 14 % (12-44); MEAN CORPUSCULAR HEMOGLOBIN 31 pg (25-34); MEAN CORPUSCULAR HGB CONC 32 g/dL (32-36); MEAN CORPUSCULAR VOLUME 100 fL (80-99); MEAN PLATELET VOLUME 8.7 fL (9.0-12.2); MONOCYTES # (AUTO) 0.3 10^3/uL (0.0-1.0); MONOCYTES % (AUTO) 6 % (0-12); NEUTROPHILS # (AUTO) 3.9 10^3/uL (1.8-7.8); NEUTROPHILS % (AUTO) 74 % (42-75); PLATELET COUNT 152 10^3/uL (130-400); WHITE BLOOD COUNT 5.2 10^3/uL (4.3-11.0)
[2020-12-06 13:05] LABS: ALBUMIN 4.2 GM/DL (3.2-4.5); BILIRUBIN,TOTAL 0.8 MG/DL (0.1-1.0); CALCIUM 9.8 MG/DL (8.5-10.1); CREATININE SERUM 1.13 MG/DL (0.60-1.30); POTASSIUM 4.3 MMOL/L (3.6-5.0); TOTAL PROTEIN 7.9 GM/DL (6.4-8.2)
--- NOTE | 2020-12-06 13:54 | Diagnostic Imaging Report ---
PROCEDURE: CT angiography of the chest with contrast. TECHNIQUE: Multiple contiguous axial images were obtained through the chest after uneventful bolus administration of intravenous contrast. 3D reconstructed CTA MIP acquisitions were also performed. Auto Exposure Controls were utilized during the CT exam to meet ALARA standards for radiation dose reduction. INDICATION: Two weeks history of shortness of breath. FINDINGS: Pulmonary arterial branches are widely patent. No filling defect. No PE. The thoracic aorta is patent and nonaneurysmal. No pleural or pericardial effusion. Some bilateral five-lobe scattered groundglass opacities which may be suspicious for infectious etiology including atypical viral pathogens. No lung mass. No adenopathy. There is a retrocardiac hiatal hernia, the upper abdomen showing no acute pathology. IMPRESSION: 1. Groundglass five-lobe infiltrates, infectious etiology including viral pathogens such as COVID could not be excluded. 2. However, negative for PE or acute aortic disease. No chest effusion, mass, or pneumothorax. Dictated by: Dictated on workstation # [id number]
== END ==
LOC: RAD 12:16
PROVIDERS: ATTEND Family Medicine
DX: R06.00 Dyspnea, unspecified (principal); R09.02 Hypoxemia; I10 Essential (primary) hypertension; R60.0 Localized edema; R91.8 Other nonspecific abnormal finding of lung field
CPT/HCPCS: 36415; 71275; 80053; 85025; 85379

== ENCOUNTER → 2020-12-21 | Outpatient (CLI) | payer MEDICARE, OTHER ==
[~2020-12-21] MED LIST changes: -CATHETER FLUSH 10 ML SYR IV PRN; -HOLD METFORMIN - RECEIVED CONTRAST 20 ML VIAL IV SCH; -IOHEXOL 350 MG/ML 100 ML (OMNIPAQUE 350) VIAL IV ONE; -NS 100 ML (IVPB) BAG IV ONE
--- NOTE | 2020-12-21 15:39 | Diagnostic Imaging Report ---
EXAMINATION: CHEST (PA AND LATERAL). CLINICAL INDICATION: 75-year-old female, history of pneumonia. Shortness of breath. COMPARISON: April 06, 2018. CT chest December 06, 2020. FINDINGS: The heart size and mediastinal contours are unchanged. There is no identified pneumothorax. There is no pleural effusion. There is no identified focal airspace consolidation. There are mild disc degenerative changes of the spine. IMPRESSION: 1. No radiographically apparent acute cardiopulmonary abnormality. 2. Previously noted areas of groundglass and/or mosaic lung attenuation on prior CT may not be well seen radiographically. Dictated by: Dictated on workstation # [id number]
== END ==
LOC: RAD 12:04
PROVIDERS: ATTEND Family Medicine
DX: J18.9 Pneumonia, unspecified organism (principal)
CPT/HCPCS: 71046

== ENCOUNTER → 2021-04-13 | Outpatient (CLI) | payer MEDICARE, OTHER ==
[~2021-04-13] VITALS: Ht 165.1 cm; Wt 111.8 kg
[~2021-04-13] MED LIST changes: +NS IV 1000 ML 1,000 ML IV SCH
[2021-04-13 10:45] VITALS: BP 158/76
== END ==
LOC: SDC 10:29 → EDSTATUS 10:33 → SDC 10:34
PROVIDERS: ATTEND Family Medicine
DX: R19.7 Diarrhea, unspecified (principal); E86.0 Dehydration
CPT/HCPCS: 96360

== ENCOUNTER → 2021-04-16 | Outpatient (CLI) | payer MEDICARE, OTHER ==
[~2021-04-16] MED LIST changes: -NS IV 1000 ML 1,000 ML IV SCH
[2021-04-16 14:05] LABS: BASOPHILS % (AUTO) 1 % (0-10); EOSINOPHILS # (AUTO) 0.2 10^3/uL (0.0-0.3); EOSINOPHILS % (AUTO) 6 % (0-10); HEMATOCRIT 35 % (35-52); HEMOGLOBIN 10.5 g/dL (11.5-16.0); LYMPHOCYTES % (AUTO) 23 % (12-44); MEAN CORPUSCULAR HEMOGLOBIN 30 pg (25-34); MEAN CORPUSCULAR HGB CONC 30 g/dL (32-36); MEAN CORPUSCULAR VOLUME 101 fL (80-99); MEAN PLATELET VOLUME 9.7 fL (9.0-12.2); MONOCYTES # (AUTO) 0.3 10^3/uL (0.0-1.0); MONOCYTES % (AUTO) 8 % (0-12); NEUTROPHILS # (AUTO) 2.7 10^3/uL (1.8-7.8); NEUTROPHILS % (AUTO) 63 % (42-75); PLATELET COUNT 141 10^3/uL (130-400); WHITE BLOOD COUNT 4.3 10^3/uL (4.3-11.0)
[2021-04-16 14:15] LABS: ALBUMIN 3.7 GM/DL (3.2-4.5); POTASSIUM 3.7 MMOL/L (3.6-5.0)
[2021-04-16 14:16] LABS: CALCIUM 9.2 MG/DL (8.5-10.1)
[2021-04-16 14:17] LABS: TOTAL PROTEIN 7.2 GM/DL (6.4-8.2)
[2021-04-16 14:19] LABS: BILIRUBIN,TOTAL 0.5 MG/DL (0.1-1.0)
[2021-04-16 14:21] LABS: CREATININE SERUM 0.75 MG/DL (0.60-1.30)
== END ==
LOC: LAB 13:37
PROVIDERS: ATTEND Surgery
DX: L98.492 Non-pressure chronic ulcer of skin of other sites with fat layer exposed (principal); L03.116 Cellulitis of left lower limb; E66.01 Morbid (severe) obesity due to excess calories
CPT/HCPCS: 36415; 80053; 85025

== ENCOUNTER → 2021-04-16 | Outpatient (CLI) | payer MEDICARE, OTHER | LOC: WOUNDCARE 12:17 | PROVIDERS: ATTEND Surgery | DX: L98.492 Non-pressure chronic ulcer of skin of other sites with fat layer exposed (principal); L03.116 Cellulitis of left lower limb; E66.01 Morbid (severe) obesity due to excess calories | CPT/HCPCS: A6260; G0463; 99212 ==

== ENCOUNTER → 2021-04-23 | Outpatient (CLI) | payer MEDICARE, OTHER | LOC: WOUNDCARE 09:50 | PROVIDERS: ATTEND Surgery | DX: L98.492 Non-pressure chronic ulcer of skin of other sites with fat layer exposed (principal); L03.116 Cellulitis of left lower limb; E66.01 Morbid (severe) obesity due to excess calories; I96 Gangrene, not elsewhere classified | CPT/HCPCS: 99213 ==

== ENCOUNTER → 2021-04-30 | Outpatient (CLI) | payer MEDICARE, OTHER | LOC: WOUNDCARE 09:59 | PROVIDERS: ATTEND Surgery | DX: L98.492 Non-pressure chronic ulcer of skin of other sites with fat layer exposed (principal); I96 Gangrene, not elsewhere classified; L03.116 Cellulitis of left lower limb; E66.01 Morbid (severe) obesity due to excess calories; Z68.41 Body mass index [BMI] 40.0-44.9, adult | CPT/HCPCS: A6197; A6212; G0463; 99213 ==

== ENCOUNTER → 2021-05-14 | Outpatient (CLI) | payer MEDICARE, OTHER | LOC: WOUNDCARE 09:50 | PROVIDERS: ATTEND Surgery | DX: L98.492 Non-pressure chronic ulcer of skin of other sites with fat layer exposed (principal); L03.116 Cellulitis of left lower limb; E66.01 Morbid (severe) obesity due to excess calories; Z68.41 Body mass index [BMI] 40.0-44.9, adult | CPT/HCPCS: 99212 ==

== ENCOUNTER 2021-12-27 05:49 | Outpatient (CLI) | payer MEDICARE, OTHER ==
[~2021-12-27] VITALS: Ht 162.5 cm; Wt 112.6 kg
[2021-12-27] MEDS ORDERED: CARV25TA PO (13:15)
[2021-12-27] MEDS ORDERED: PRAM1.5T5 PO (13:15)
[2021-12-27] MEDS ORDERED: FERR324T4 PO (13:15)
[2021-12-27] MEDS ORDERED: SERT-414 PO (13:15)
[2021-12-27] MEDS ORDERED: GABA800T10 PO (13:15)
== END 2021-12-27 13:20 | disposition home or self-care (01) ==
LOC: PREOP 05:49
PROVIDERS: ATTEND Surgery
DX: Z01.818 Encounter for other preprocedural examination (principal)

== ENCOUNTER 2022-01-08 12:14 | Day surgery (SDC) | payer MEDICARE, OTHER ==
[~2022-01-08] VITALS: Ht 162.5 cm; Wt 112.6 kg
[~2022-01-08 12:14] MED LIST changes: +CARV25TA PO; +FERR324T4 PO; +GABA800T10 PO; +PRAM1.5T5 PO; +SERT-414 PO
[2022-01-08] MEDS ORDERED: LACTATED RINGERS 1,000 ML IV STA (12:26)
[2022-01-08] MEDS ORDERED: HURRICAINE EXT TUBE (BENZOCAINE) XX PRN (12:30)
[2022-01-08 12:52] VITALS: BP 174/74
[2022-01-08] MEDS ORDERED: PROPOFOL INJECTION 50 ML IV ONE (12:55)
--- NOTE | 2022-01-08 13:02 | Progress Note-Pre Operative ---
Pre-Operative Progress Note H&P Reviewed The H&P was reviewed, patient examined and no changes noted. Date Seen by Provider: January 08, 2022 Time Seen by Provider: 13:02 Date H&P Reviewed: January 08, 2022 Time H&P Reviewed: 13:02 Pre-Operative Diagnosis: iron def anemia, hx polyps DANIELLE SIMMONS DO January 08, 2022 13:02
[2022-01-08] MEDS ORDERED: proPOfol 200 MG/20 ML (DIPRIVAN) VIAL IV ONE (14:00)
[2022-01-08 14:15] VITALS: BP 129/62
--- NOTE | 2022-01-08 14:17 | Anesthesia-General Post-Op ---
MAC Patient Condition Mental Status/LOC: Same as Preop Cardiovascular: Satisfactory Nausea/Vomiting: Absent Respiratory: Satisfactory Pain: Controlled Complications: Absent Post Op Complications Complications None Follow Up Care/Instructions Patient Instructions None needed. Anesthesiology Discharge Order Discharge Order Patient is doing well, no complaints, stable vital signs, no apparent adverse anesthesia problems. CARO ROBLES DO January 08, 2022 14:17
[2022-01-08 14:18] VITALS: BP 129/62
[2022-01-08 14:50] VITALS: BP 139/55
--- NOTE | 2022-01-08 23:35 | OPERATIVE REPORT ---
DATE OF SERVICE: 01/08/2022 PREOPERATIVE DIAGNOSIS: Iron deficiency anemia. POSTOPERATIVE DIAGNOSIS: History of colon polyps. PROCEDURE: EGD with biopsies, colonoscopy with hot biopsy polypectomy x10. SURGEON: Danielle Austin DO ANESTHESIA: Per MDA. ESTIMATED BLOOD LOSS: Scant. COMPLICATIONS: None. INDICATIONS: The patient is a 76-year-old female with iron deficiency anemia and history of polyps. She understands risks and benefits of procedures and wishes to proceed. Consent was signed in the chart. DESCRIPTION OF PROCEDURE: The patient was taken to the endoscopy suite, placed in left lateral recumbent position. Timeout was performed. Scope was inserted in the mouth, down the esophagus, stomach and into the duodenum without difficulty. There were no polyps, masses or ulcerations in the duodenum. Scope was then slowly retracted back. No polyps, masses or ulcerations. Some slight erythematous changes in the stomach antrum. Antral biopsy was obtained. Scope was then brought back and retroflexed. Small hiatal hernia present, where the GE junction was on retroflexion, there did seem to have a lot of inflammatory changes around this area. A biopsy was obtained. Scope was returned to its normal position, slowly withdrawn to the distal esophagus. No polyps, masses or ulcerations. Scope was slowly retracted back until completely removed. The patient then had digital rectal exam was performed. No palpable polyps, masses or ulcerations. Scope was inserted in the rectum and advanced all the way to cecum with minimal difficulty. Prep was adequate. Scope was slowly retracted back. In cecum, there was polyp was present, which hot biopsy polypectomy was performed. Scope was then continuously retracted back in the ascending colon. Four polyps were present, which hot biopsy polypectomy was performed. Scope was then continuously retracted back into the transverse colon where three more polyps were present, which hot biopsy polypectomies were performed. Scope was then continuously retracted back. No polyps, masses or ulcerations in the descending colon and sigmoid colon, a small polyp was present, which hot biopsy polypectomy was performed. Scope was continuously retracted back into the rectum where scope was retroflexed also noting a small polyp. No other pathology. Scope was returned to its normal position. On that polyp, hot biopsy polypectomy was performed. Scope was then slowly retracted back until completely removed. The patient tolerated procedure well without any complications. She was taken to recovery room in stable condition. RECOMMENDATIONS: The patient will continue on current medications. Await biopsy results. The patient will need repeat colonoscopy in one year due to multiple polyps depending upon pathology. Further recommendations pending. We will have the patient follow up in 2 weeks in the office. Job ID: [id number] DocumentID: [id number] Dictated Date: 01/08/2022 16:17:55 Garment Form Assembler Date: 01/08/2022 23:35:02 Dictated By: DANIELLE AUSTIN DO
== END 2022-01-08 15:20 | disposition home or self-care (01) ==
LOC: ENDO 12:14
PROVIDERS: ATTEND Surgery
DX: D12.0 Benign neoplasm of cecum (principal); D12.2 Benign neoplasm of ascending colon; D12.3 Benign neoplasm of transverse colon; K63.5 Polyp of colon; K29.50 Unspecified chronic gastritis without bleeding; K20.90 Esophagitis, unspecified without bleeding; K31.9 Disease of stomach and duodenum, unspecified; D50.9 Iron deficiency anemia, unspecified
CPT/HCPCS: 88305; 88342

== ENCOUNTER → 2022-08-05 | Outpatient (CLI) | payer MEDICARE, OTHER ==
--- NOTE | 2022-08-05 15:26 | Diagnostic Imaging Report ---
INDICATION: Cough. COMPARISON: 12/21/2020. FINDINGS: Frontal and lateral views of the chest demonstrate normal heart size and pulmonary vascularity. The lungs are clear. There are no signs of infiltrate, pleural effusions, or pneumothoraces. The visualized osseous structures show no acute abnormalities. IMPRESSION: No acute process. No signs of infiltrates, effusions, or pneumothoraces. Dictated by: Dictated on workstation # [id number]
== END ==
LOC: RAD 13:58
PROVIDERS: ATTEND Family Medicine
DX: R05.9 Cough, unspecified (principal)
CPT/HCPCS: 71046